=== PATIENT | male | born 1980 | race African-American/Black ===

== ENCOUNTER 2017-12-16 06:08 | Emergency (ER) | payer OTHER ==
[~2017-12-16] VITALS: Ht 172.7 cm; Wt 83.0 kg
[~2017-12-16 06:08] MED LIST: NOHOMEMEDICATIONS; PROAIR HFA8.5 GM; VENTOLIN17 GM INH; ZPAK PO
[2017-12-16 06:15] VITALS: BP 137/101
[2017-12-16] MEDS ORDERED: NOHOMEMEDICATIONS (06:18)
[2017-12-16 07:15] LABS: URINE BILIRUBIN NEGATIVE (Negative); URINE BLOOD TRACE (Negative); URINE CLARITY CLEAR; URINE COLOR YELLOW; URINE GLUCOSE-RANDOM* NEGATIVE (Negative); URINE KETONES NEGATIVE (Negative); URINE LEUKOCYTES-REFLEX NEGATIVE (Negative); URINE NITRITE-REFLEX NEGATIVE (Negative); URINE PROTEIN (DIPSTICK) 2+ (Negative); URINE SPECIFIC GRAVITY >= 1.030 (1.005-1.035); URINE UROBILINOGEN 0.2 E.U./dl (0.2-1.0)
[2017-12-16 07:29] LABS: MUCUS >6 Heavy strn/LPF (None Seen); SQUAMOUS 0-3 Few /LPF (0-3)
[2017-12-16 07:30] LABS: BACTERIA-REFLEX None Seen /HPF (None Seen); CASTS None Seen /LPF (None Seen); CRYSTALS None Seen /LPF (None Seen); URINE RBC 0-2 Rare /HPF (0-2); URINE WBC-REFLEX 0-5 Rare /HPF (0-5)
== END 2017-12-16 07:45 | disposition home or self-care (01) ==
LOC: ER 06:08
PROVIDERS: Emergency Medicine
DX: Z20.2 Contact with and (suspected) exposure to infections with a predominantly sexual mode of transmission (principal)

== ENCOUNTER 2019-11-29 01:40 | Emergency (ER) | payer BC ==
[~2019-11-29] VITALS: Ht 172.7 cm; Wt 76.2 kg
[2019-11-29 01:43] VITALS: BP 119/72
[2019-11-29] MEDS ORDERED: KEFLEX500 M1 PO (02:05)
[2019-11-29] MEDS ORDERED: MEDROLDOSEPACK PO (02:05)
== END 2019-11-29 02:05 | disposition home or self-care (01) ==
LOC: ER 01:40
DX: L03.116 Cellulitis of left lower limb (principal); L23.7 Allergic contact dermatitis due to plants, except food; F17.210 Nicotine dependence, cigarettes, uncomplicated